=== PATIENT | male | born 1940 | race Caucasian/White ===

== ENCOUNTER 2019-09-18 13:23 | Outpatient (CLI) | payer MEDICARE, SELFPAY ==
[2019-09-18 13:34] LABS: Basophils Absolute Auto 0.05 K/mm3 (0.00-0.10); Basophils Percent Auto 0.7 % (0.0-1.0); Eosinophils Absolute Auto 0.22 K/mm3 (0.02-0.50); Eosinophils Percent Auto 3.2 % (1.0-6.0); Hematocrit 42.6 % (37.0-46.0); Hemoglobin 13.9 g/dL (12.4-15.3); Immature Granulocyte Absolute 0.03 K/mm3 (0.00-0.00); Immature Granulocyte Percent A 0.4 % (0.0-0.0); Lymphocytes Absolute Auto 1.42 K/mm3 (1.10-4.50); Lymphocytes Percent Auto 20.9 % (18.0-42.0); Mean Corpuscular HGB Conc 32.6 g/dL (32.0-36.0); Mean Corpuscular Hemoglobin 30.8 pg (27.0-31.0); Mean Corpuscular Volume 94.5 fL (78.0-102.0); Monocytes Absolute Auto 0.54 K/mm3 (0.10-0.90); Neutrophils Absolute Auto 4.5 K/mm3 (1.7-7.2); Neutrophils Percent Auto 66.8 % (50.0-70.0); Platelet Count Result 154 K/mm3 (150-420); Red Blood Count 4.51 M/mm3 (4.70-6.10); Red Cell Distribution Width 12.1 % (11.6-14.4); White Blood Count 6.8 K/mm3 (4.8-10.8)
[2019-09-18 13:43] LABS: Hemoglobin A1C 7.9 % (<5.7)
[2019-09-18 14:05] LABS: Alanine Aminotransferase 24 U/L (16-63); Albumin Level 3.7 g/dL (3.4-5.0); Alkaline Phosphatase 134 U/L (46-116); Anion Gap 11.4 mmol/L (7-16); Aspartate Amino Transferase 22 U/L (15-37); Bilirubin,Total 0.4 mg/dL (0.00-1.00); Blood Urea Nitrogen 15 mg/dL (7-18); Calcium 9.1 mg/dL (8.5-10.1); Carbon Dioxide 31 mmol/L (21-32); Chloride 104 mmol/L (98-108); Estimated Glomerular Filt Rate > 60; Glucose 119 mg/dL (70-99); Osmolality Calculated 295 mOsm/kg (285-295); Potassium 4.4 mmol/L (3.5-5.1); Sodium 142 mmol/L (136-145); Total Protein 6.6 g/dL (6.4-8.2)
== END 2019-09-18 13:24 | disposition home or self-care (01) ==
PROVIDERS: PCP Nurse Practitioner Family; Visit Provider Nurse Practitioner Family
DX: E11.9 Type 2 diabetes mellitus without complications (principal); Z79.4 Long term (current) use of insulin
CPT/HCPCS: 36415; 80053; 83036; 85025

== ENCOUNTER 2020-03-19 10:38 | Outpatient (CLI) | payer MEDICARE, SELFPAY ==
[2020-03-20 20:00] LABS: SARS-CoV-2 RNA PCR Negative
== END 2020-03-19 10:39 | disposition home or self-care (01) ==
LOC: CHSLAB 10:41
PROVIDERS: PCP Family Medicine; Visit Provider Nurse Practitioner Family
DX: Z20.828 Contact with and (suspected) exposure to other viral communicable diseases (principal)
CPT/HCPCS: 87635; C9803; U0003

== ENCOUNTER 2020-04-15 16:01 | Outpatient (CLI) | payer MEDICARE, SELFPAY ==
[2020-04-15 16:37] LABS: Hemoglobin A1C 7.2 % (<5.7)
== END 2020-04-15 16:02 | disposition home or self-care (01) ==
LOC: CHSLAB 16:03
PROVIDERS: PCP Family Medicine; Visit Provider Family Medicine
DX: E11.59 Type 2 diabetes mellitus with other circulatory complications (principal); I10 Essential (primary) hypertension
CPT/HCPCS: 36415; 83036

== ENCOUNTER 2020-09-30 09:02 | Outpatient (CLI) | payer MEDICARE, SELFPAY ==
--- NOTE | ~2020-09-30 | XR_ITS ---
EXAMINATION: XR shoulder RT min 2V DATE: 09/30/2020 09:22 INDICATION: Right shoulder pain post heavy lifting TECHNIQUE: AP internally and externally rotated, AP oblique externally rotated and transscapular Y vi ews of the right shoulder were obtained. COMPARISON: None FINDINGS: Normal alignment. No fracture.Mild glenohumeral osteoarthritis with relatively preserved joint space but small marginal osteophytes along the inferior glenoid. 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 Small subacromial spur. Mild cystic change at the lesser tuber osity which could be related to chronic subscapularis tendon disease. Soft tissues are unremarkable. Visualized portions of the right lung are clear. IMPRESSION: 1. Mild glenohumeral and acromioclavicular osteoarthritis. 2. Cystic change at the lesser tuberosity which could be seen in the setting of chronic subscapularis tendon disease. Reviewed, dictated and finalized at location A.
== END 2020-09-30 09:03 | disposition home or self-care (01) ==
LOC: CHSIMG 09:05
PROVIDERS: PCP Family Medicine; Visit Provider Family Medicine
DX: M25.511 Pain in right shoulder (principal)
CPT/HCPCS: 73030

== ENCOUNTER 2020-10-01 15:55 | Outpatient (RCR) | payer MEDICARE, SELFPAY ==
--- NOTE | 2020-10-01 17:27 | PTOPEVAL ---
Thank you for referring Madhu Sebastian to [facility].? The patient is scheduled to be seen for therapy? ____x/week for ___ weeks. Please review, sign, date and return this plan of care PATY. I agree with and certify that the following plan of care is medically necessary. Referring Physician Date Admitting Provider: Attending Provider: Nestor Mirza DO Referring Provider: *PT Outpatient Evaluation Start: 10/01/20 16:03 Freq: Status: Active Protocol: Document 10/01/20 16:00 [facility] (Rec: 10/01/20 17:17 [facility] [id number]) Evaluation Information Problem Diagnosis R shoulder pain Onset 09/30/20 Additional Evaluation Detail quick dash = 22% functionally declined Subjective Information Madhu Sebastian is an 79 year old Query Text:As Reported By Patient/ male who reports R shoulder Family pain after lifting his microwave. He reports that reaching forward and elevating his shoulder are the most painful motions, and that most of his pain is located anterior near the bicipital groove. He has been using heat and ice PRN in additon to taking tylenol PRN. He reports no dificulty sleeping. Earlier today he was power washing the siding and experienced some pain, but it was not unbearable . Prior Level of Function Comments Additional Prior Level of Function independent yard/house work Comments with bilateral UE's without pain or limitation Pain Assessment Timing of Pain Assessment Timing of Pain Assessment Pre-Treatment Pain Scale Pain Scale Used Numeric (1 - 10) Self Report Pain Assessment Right Shoulder(s) Reported Pain Level 0 Lowest Pain Intensity 0 Greatest Pain Intensity 5 Pain Score Pain Score 0: Self Report Additional Pain Score Comments patient pain increased with mmt and special testing, thus heat and IFC to the shoulder was used to reduce pain Interventions Used Interventions Used By Clinicians Activity or ADL's,Education, Electrical Stimulation, Exercise,Heat Upper Extremity Range of Motion Scapular/ Shoulder Range of Motion Left Shoulder Flexion - Active 170 Shoulder Flexion - Passive 17
--- NOTE | 2020-12-07 16:06 | PCPTNOTE ---
patient has not been to therapy in nearly 2 months. as of this date, patient will be dc'd from skilled PT services and all progress towards goals will be taken from his most recent evaluation/note. SHAYE
== END 2020-10-07 09:02 | disposition home or self-care (01) ==
LOC: CHSPT 15:55
PROVIDERS: PCP Family Medicine; Visit Provider Family Medicine
DX: M25.511 Pain in right shoulder (principal)
CPT/HCPCS: 97014; 97110; 97161; G0283

== ENCOUNTER 2021-01-07 10:58 | Outpatient (CLI) | payer MEDICARE, SELFPAY ==
[2021-01-07 11:27] LABS: Creatinine Urine 175.32 mg/dL (40-278); MALB Creatinine Ratio 7.4 mg/g (0-30); Microalbumin Urine Random < 13.0 mg/L
[2021-01-07 11:29] LABS: Hemoglobin A1C 7.7 % (<5.7)
[2021-01-07 11:46] LABS: Alanine Aminotransferase 36 U/L (16-63); Albumin Level 3.7 g/dL (3.4-5.0); Alkaline Phosphatase 125 U/L (46-116); Anion Gap 6 mmol/L (8-16); Aspartate Amino Transferase 16 U/L (15-37); Bilirubin,Total 0.5 mg/dL (0.00-1.00); Blood Urea Nitrogen 18 mg/dL (7-18); Calcium 9.2 mg/dL (8.5-10.1); Carbon Dioxide 33 mmol/L (21-32); Chloride 105 mmol/L (98-108); Cholesterol 117 mg/dL (0-200); Estimated Glomerular Filt Rate > 60; Glucose 188 mg/dL (70-99); HDL Direct 57 mg/dL (40-60); LDL Cholesterol Calculated 46 mg/dL (<130); Osmolality Calculated 304 mOsm/kg (285-295); Potassium 4.5 mmol/L (3.5-5.1); Sodium 144 mmol/L (136-145); Total Protein 6.5 g/dL (6.4-8.2); Triglycerides 71 mg/dL (0-150)
== END 2021-01-07 10:59 | disposition home or self-care (01) ==
LOC: CHSLAB 11:01
PROVIDERS: PCP Family Medicine; Visit Provider Family Medicine
DX: E11.9 Type 2 diabetes mellitus without complications (principal); E87.0 Hyperosmolality and hypernatremia; D69.6 Thrombocytopenia, unspecified; L82.1 Other seborrheic keratosis
CPT/HCPCS: 36415; 80053; 80061; 82043; 83036; 88305

== ENCOUNTER 2022-01-28 13:10 | Outpatient (CLI) | payer MEDICARE, SELFPAY ==
[2022-01-28 13:31] LABS: Hemoglobin A1C 7.8 % (<5.7)
[2022-01-28 13:39] LABS: Creatinine Urine 55.96 mg/dL (40-278); MALB Creatinine Ratio 23.2 mg/g (0-30); Microalbumin Urine Random < 13.0 mg/L
[2022-01-28 14:10] LABS: Alanine Aminotransferase 20 U/L (16-63); Albumin Level 3.7 g/dL (3.4-5.0); Alkaline Phosphatase 149 U/L (46-116); Anion Gap 7 mmol/L (8-16); Aspartate Amino Transferase 15 U/L (15-37); Bilirubin,Total 0.4 mg/dL (0.00-1.00); Blood Urea Nitrogen 20 mg/dL (7-18); Carbon Dioxide 28 mmol/L (21-32); Chloride 108 mmol/L (98-108); Cholesterol 128 mg/dL (0-200); Estimated Glomerular Filt Rate 59; Glucose 208 mg/dL (70-99); HDL Direct 66 mg/dL (40-60); LDL Cholesterol Calculated 23 mg/dL (<130); Osmolality Calculated 304 mOsm/kg (285-295); Potassium 4.9 mmol/L (3.5-5.1); Sodium 143 mmol/L (136-145); Total Protein 6.6 g/dL (6.4-8.2); Triglycerides 197 mg/dL (0-150)
== END 2022-01-28 13:11 | disposition home or self-care (01) ==
LOC: CHSLAB 13:12
PROVIDERS: PCP Family Medicine; Visit Provider Family Medicine
DX: E11.9 Type 2 diabetes mellitus without complications (principal)
CPT/HCPCS: 36415; 80053; 80061; 82043; 83036

== ENCOUNTER 2023-04-27 13:28 | Outpatient (CLI) | payer MEDICARE, SELFPAY ==
[2023-04-27 13:41] LABS: Basophils Absolute Auto 0.05 K/mm3 (0.00-0.10); Basophils Percent Auto 0.7 % (0.0-1.0); Eosinophils Absolute Auto 0.16 K/mm3 (0.02-0.50); Eosinophils Percent Auto 2.2 % (1.0-6.0); Hematocrit 42.1 % (37.0-46.0); Hemoglobin 13.6 g/dL (12.4-15.3); Immature Granulocyte Absolute 0.03 K/mm3 (0.00-0.00); Immature Granulocyte Percent A 0.4 % (0.0-0.0); Lymphocytes Absolute Auto 1.45 K/mm3 (1.10-4.50); Lymphocytes Percent Auto 19.7 % (18.0-42.0); Mean Corpuscular HGB Conc 32.3 g/dL (32.0-36.0); Mean Corpuscular Hemoglobin 30.3 pg (27.0-31.0); Mean Corpuscular Volume 93.8 fL (78.0-102.0); Mean Platelet Volume 11.9 fl (8.7-11.0); Monocytes Absolute Auto 0.62 K/mm3 (0.10-0.90); Monocytes Percent Auto 8.4 % (2.0-11.0); Neutrophils Absolute Auto 5.1 K/mm3 (1.7-7.2); Neutrophils Percent Auto 68.6 % (50.0-70.0); Platelet Count Result 182 K/mm3 (150-420); Red Blood Count 4.49 M/mm3 (4.70-6.10); Red Cell Distribution Width 12.5 % (11.6-14.4); White Blood Count 7.4 K/mm3 (4.8-10.8)
[2023-04-27 14:00] LABS: Hemoglobin A1C 7.6 % (<5.7)
[2023-04-27 14:30] LABS: Alanine Aminotransferase 16 U/L (16-63); Albumin Level 3.6 g/dL (3.4-5.0); Alkaline Phosphatase 129 U/L (46-116); Anion Gap 12 mmol/L (8-16); Aspartate Amino Transferase 15 U/L (15-37); Bilirubin,Total 0.5 mg/dL (0.00-1.00); Blood Urea Nitrogen 23 mg/dL (7-18); Calcium 9.1 mg/dL (8.5-10.1); Carbon Dioxide 26 mmol/L (21-32); Chloride 108 mmol/L (98-108); Cholesterol 134 mg/dL (0-200); Estimated Glomerular Filt Rate 58; Glucose 137 mg/dL (70-99); HDL Direct 80 mg/dL (40-60); LDL Cholesterol Calculated 39 mg/dL (<130); Osmolality Calculated 307 mOsm/kg (285-295); Potassium 4.5 mmol/L (3.5-5.1); Sodium 146 mmol/L (136-145); Total Protein 6.7 g/dL (6.4-8.2); Triglycerides 77 mg/dL (0-150)
[2023-04-27 14:48] LABS: MALB Creatinine Ratio 86.6 mg/g (0-30); Microalbumin Urine Random > 400.0 mg/L
== END 2023-04-27 13:29 | disposition home or self-care (01) ==
LOC: CHSLAB 13:31
PROVIDERS: PCP Family Medicine; Visit Provider Family Medicine
DX: I10 Essential (primary) hypertension (principal); E11.59 Type 2 diabetes mellitus with other circulatory complications
CPT/HCPCS: 36415; 80053; 80061; 82043; 83036; 85025

== ENCOUNTER 2024-05-09 12:58 | Outpatient (CLI) | payer MEDICARE, SELFPAY ==
[2024-05-09 13:30] LABS: Basophils Absolute Auto 0.05 K/mm3 (0.00-0.10); Basophils Percent Auto 0.6 % (0.0-1.0); Eosinophils Absolute Auto 0.16 K/mm3 (0.02-0.50); Eosinophils Percent Auto 2.1 % (1.0-6.0); Hematocrit 38.6 % (37.0-46.0); Hemoglobin 12.4 g/dL (12.4-15.3); Immature Granulocyte Absolute 0.02 K/mm3 (0.00-0.00); Immature Granulocyte Percent A 0.3 % (0.0-0.0); Lymphocytes Absolute Auto 1.39 K/mm3 (1.10-4.50); Lymphocytes Percent Auto 17.9 % (18.0-42.0); Mean Corpuscular HGB Conc 32.1 g/dL (32-36); Mean Corpuscular Hemoglobin 30.2 pg (27.0-31.0); Mean Corpuscular Volume 94.1 fL (78.0-102.0); Mean Platelet Volume 11.8 fl (8.7-11.0); Monocytes Absolute Auto 0.71 K/mm3 (0.10-0.90); Monocytes Percent Auto 9.1 % (2.0-11.0); Neutrophils Absolute Auto 5.44 K/mm3 (1.70-7.20); Platelet Count Result 190 K/mm3 (150-420); White Blood Count 7.8 K/mm3 (4.8-10.8)
[2024-05-09 13:59] LABS: Creatinine Urine 178.86 mg/dL (40-278); MALB Creatinine Ratio 21.5 mg/g (0-30); Microalbumin Urine Random 38.6 mg/L
[2024-05-09 14:12] LABS: Alanine Aminotransferase 18 U/L (16-63); Albumin Level 3.8 g/dL (3.4-5.0); Alkaline Phosphatase 146 U/L (46-116); Anion Gap 9 mmol/L (4-12); Aspartate Amino Transferase 13 U/L (15-37); Bilirubin,Total 0.4 mg/dL (0.00-1.00); Blood Urea Nitrogen 27 mg/dL (7-18); Calcium 9.5 mg/dL (8.5-10.1); Carbon Dioxide 28 mmol/L (21-32); Chloride 108 mmol/L (98-108); Cholesterol 157 mg/dL (0-200); Estimated Glomerular Filt Rate > 60; Glucose 68 mg/dL (70-99); HDL Direct 87 mg/dL (40-60); LDL Cholesterol Calculated 49 mg/dL (<130); Osmolality Calculated 303 mOsm/kg (285-295); Potassium 4.8 mmol/L (3.5-5.1); Sodium 145 mmol/L (136-145); Total Protein 6.9 g/dL (6.4-8.2); Triglycerides 107 mg/dL (0-150)
== END 2024-05-09 12:59 | disposition home or self-care (01) ==
LOC: CHSLAB 12:59
PROVIDERS: PCP Family Medicine; Visit Provider Family Medicine
DX: E11.59 Type 2 diabetes mellitus with other circulatory complications (principal); I10 Essential (primary) hypertension
CPT/HCPCS: 36415; 80053; 80061; 82043; 83036; 85025